=== PATIENT | female | born 1950 | race Two or more races ===

== ENCOUNTER 2021-08-28 09:53 | Day surgery (SDC) | payer OTHER ==
[~2021-08-28] VITALS: Ht 162.6 cm; Wt 83.9 kg
[~2021-08-28 09:53] MED LIST: METFORMIN HCL750 MG; SYNTHROID100 MCG
[2021-08-28] MEDS ORDERED: SYMBICORT 16010.2 GM (16:17)
[2021-08-28] MEDS ORDERED: MONTELUKAST SOD10 MG (16:17)
[2021-08-28] MEDS ORDERED: OPTIMAL D31250 MCG (16:17)
[2021-08-28] MEDS ORDERED: GABAPENTIN300 M2 (16:17)
[2021-08-28] MEDS ORDERED: MELOXICAM7.5 MG PO (20:28)
[2021-08-28] MEDS ORDERED: TAMS0.4C PO (20:28)
[2021-08-28] MEDS ORDERED: CEPHALEXIN500 MG PO (20:29)
[2021-08-28] MEDS ORDERED: ULTRAM50 MG PO (20:30)
== END 2021-08-29 05:51 | disposition home or self-care (01) ==
LOC: CIR.AMB 09:53 → ER 09:53 → CIR.AMB 09:53 → SEC-K 09:53 → EDSTATUS 13:00 → O/R 15:06 → SEC-K 15:06 → O/R 08-29 01:05 → CIR.AMB 08-29 05:51
PROVIDERS: ATTEND Surgery
DX: N20.1 Calculus of ureter (principal); Z20.822 Contact with and (suspected) exposure to COVID-19

== ENCOUNTER 2021-09-01 21:27 | Inpatient (IN) | payer OTHER ==
[~2021-09-01] VITALS: Ht 157.5 cm; Wt 81.6 kg
[~2021-09-01 21:27] MED LIST changes: +CEPHALEXIN500 MG PO; +GABAPENTIN300 M2; +MELOXICAM7.5 MG PO; +MONTELUKAST SOD10 MG; +OPTIMAL D31250 MCG; +SYMBICORT 16010.2 GM; +TAMS0.4C PO; +ULTRAM50 MG PO
[2021-09-02] MEDS ORDERED: PREGABALIN50 MG PO (15:08)
[2021-09-12] MEDS ORDERED: AMOX-CLAV 875-1 EACH PO (14:56)
== END 2021-09-12 16:23 | disposition home or self-care (01) | DRG 690 ==
LOC: ER 21:27 → SURH 09-02 14:57 → SURG 09-02 14:57 → SURH 09-02 15:55
PROVIDERS: ADMIT Surgery; ATTEND Surgery
PROC: BW40ZZZ Ultrasonography of Abdomen (ICD-10-PCS; 2021-09-02)
PROC: B24BZZZ Ultrasonography of Heart with Aorta (ICD-10-PCS; 2021-09-02)
PROC: B54DZZZ Ultrasonography of Bilateral Lower Extremity Veins (ICD-10-PCS; 2021-09-02)
PROC: BF3 Imaging, Hepatobiliary System and Pancreas, Magnetic Resonance Imaging (MRI) (ICD-10-PCS; principal; 2021-09-04)
PROC: 02HV33Z Insertion of Infusion Device into Superior Vena Cava, Percutaneous Approach (ICD-10-PCS; 2021-09-09)
DX: N13.6 Pyonephrosis (principal); N20.2 Calculus of kidney with calculus of ureter; E80.6 Other disorders of bilirubin metabolism; D72.828 Other elevated white blood cell count; E66.09 Other obesity due to excess calories; E03.8 Other specified hypothyroidism; E11.65 Type 2 diabetes mellitus with hyperglycemia; R50.9 Fever, unspecified; I87.2 Venous insufficiency (chronic) (peripheral); Z20.822 Contact with and (suspected) exposure to COVID-19; Z79.4 Long term (current) use of insulin

== ENCOUNTER 2023-10-13 11:15 | Outpatient (CLI) | payer OTHER ==
[~2023-10-13 11:15] MED LIST changes: +AMOX-CLAV 875-1 EACH PO; +JANUMET 50-1,01 EACH PO; +PREGABALIN50 MG PO
== END 2023-10-13 11:26 | disposition home or self-care (01) ==
LOC: MRI 11:15
DX: M25.562 Pain in left knee (principal)
CPT/HCPCS: 73718

== ENCOUNTER 2025-07-20 07:17 | Emergency (ER) | payer OTHER ==
[~2025-07-20] VITALS: Ht 157.5 cm; Wt 81.6 kg
[2025-07-20 08:40] LABS: BASO % 0.4 % (0.1-1.2); EOS # 0.06 (0.04-0.54); EOS % 0.4 % (0.7-7.0); LYMPH # 5.07 (1.18-3.74); LYMPH % 32.4 % (19.3-53.1); MEAN PLATELET VOLUME 11.10 fl (9.4-12.4); MONO # 1.24 (0.24-0.82); MONO % 7.9 % (4.7-12.5); NEUT # 9.18 (1.56-6.13); NEUT % 58.5 % (34.0-71.1); RED CELL DISTRIBUTION WIDTH 13.3 % (11.6-14.4)
[2025-07-20 09:01] LABS: INR 1.03
[2025-07-20 09:06] LABS: ALT/SGPT 23.0 U/L (12-78); AST/SGOT 14.0 U/L (15-37); BILIRUBIN TOTAL 0.6 mg/dL (0.3-1.2); BUN CREA RATIO 21.0 (7.0-25.0); CREATININE SERUM 1.36 mg/dL (0.55-1.02); GFR 38.01; GLOBULINA 4.8 G/DL (2.4-3.5); GLUCOSE FASTING 199.0 mg/dL (65-100); OSMOLALITY SERUM 298.0 MOSM/KG (275-295)
[2025-07-20] MEDS ORDERED: 0.9 % SODIUM CHLORIDE 1,000 ML IV STA (09:56)
== END 2025-07-20 13:08 | disposition home or self-care (01) ==
LOC: ER 07:17
PROVIDERS: General Practice
DX: R23.8 Other skin changes (principal); T78.40XA Allergy, unspecified, initial encounter; E11.9 Type 2 diabetes mellitus without complications; Z79.84 Long term (current) use of oral hypoglycemic drugs; Z88.1 Allergy status to other antibiotic agents
CPT/HCPCS: 36415; 96365; 96366; 99282; J7030